=== PATIENT | female | born 1975 | race Caucasian/White ===

== ENCOUNTER 2021-04-05 18:33 | Emergency (ER) | payer OTHER ==
[2021-04-05 20:36] LABS: BASOPHIL 0.1 % (0-2); EOSINOPHIL 0 % (0-5); HGB 14.1 g/dl (12.5-16.0); LYMPHOCYTE 15.6 % (15-48); MCH 30.1 pg (25.0-31.0); MCHC 33.6 g/dL (32.0-36.0); MCV 89.6 fL (78.0-100.0); MONOCYTE 6.7 % (0-12); MPV 11.1 fL (6.0-9.5); NEUTROPHIL 77.3 % (41-80); NRBC 0; PLT 164 K/uL (150-400); RBC 4.69 M/uL (4.20-5.40); RDW 13.8 % (11.5-14.0); WBC 6.7 K/uL (4.0-10.5)
[2021-04-05 20:37] LABS: BILIRUBIN 1+ mg/dL (NEGATIVE); BLOOD 2+ Ery/uL (NEGATIVE); CLARITY HAZY (CLEAR); COLOR YELLOW (YELLOW); GLUCOSE (U) 1+ mg/dL (NORMAL); LEUKOCYTES NEGATIVE Leu/uL (NEGATIVE); NITRITE NEGATIVE (NEGATIVE); PROTEIN 1+ mg/dL (NEGATIVE); SPECIFIC GRAVITY >=1.030 (1.001-1.030); UROBILINOGEN 0.2 mg/dL (0.2-1.0); pH 5.5 (5.0-9.0)
[2021-04-05 20:49] LABS: ALBUMIN 3.3 g/dL (3.4-5.0); BILIRUBIN - TOTAL 0.7 mg/dL (0.2-1.0); BUN/CREAT RATIO (CALC) 19.6 RATIO; CREATININE 0.46 mg/dL (0.51-0.95); POTASSIUM 3.3 mmol/L (3.5-5.1); TOTAL PROTEIN 7.3 g/dL (6.4-8.2)
[2021-04-05 20:52] LABS: AMORPHOUS URATES CRYSTALS TRACE; BACTERIA 2+; MUCOUS MODERATE; URINARY WBC RARE
[2021-04-05] MEDS ORDERED: ONDANSETRON ODT4 MG SL (23:53)
[2021-04-05] MEDS ORDERED: NORCO 5-325 TA1 EACH PO (23:53)
[2021-04-05] MEDS ORDERED: BENTYL10 MG PO (23:53)
== END 2021-04-06 00:05 | disposition home or self-care (01) ==
LOC: FER 18:33
PROVIDERS: Nurse Practitioner Family
DX: R10.84 Generalized abdominal pain (principal); R19.7 Diarrhea, unspecified; E11.9 Type 2 diabetes mellitus without complications; I10 Essential (primary) hypertension; N83.201 Unspecified ovarian cyst, right side
CPT/HCPCS: 36415; 80053; 81001; 84443; 85025; 96372; J0500; J1885; J2405; J7030; J7120; Q9967